=== PATIENT | male | born 1995 | race Caucasian/White ===

== ENCOUNTER 2021-11-16 18:45 | Emergency (ER) | payer OTHER, SELFPAY ==
--- NOTE | 2021-11-16 18:51 | ED.WOUNDLAC ---
HPI - Wound/Laceration General Chief Complaint: Wound/Laceration Stated Complaint: cut on L foot Time Seen by Provider: 11/16/21 18:57 Source: patient and RN notes reviewed Mode of arrival: ambulatory Limitations: no limitations History of Present Illness Onset (ago): minute(s) (30) Extremity Location: Left: foot Place: home Patient tetanus UTD: No Context: accidental and sharp object use Associated symptoms: pain Related Data Home Medications Medication Instructions Recorded Confirmed dextroamphetamine-amphetamine 10 mg PO DAILY 11/16/21 11/16/21 Allergies Allergy/AdvReac Type Severity Reaction Status Date / Time No Known Allergies Allergy Verified 11/16/21 19:20 Review of Systems Review of Systems: All systems reviewed & are unremarkable except as noted in HPI and below PMFSH Past Medical History Medical History (Updated 11/17/21 @ 00:00 by Sona Gonzalez) ADHD Seasonal allergies Surgical History Surgical History (Updated 11/16/21 @ 19:03 by Jose Guadarrama MD) Fracture of forearm, distal, right, closed plates and screws Social History Social History (Updated 11/16/21 @ 19:03 by Jose Guadarrama MD) Smoking status: Never smoker Exam Const: General: healthy appearing, no acute distress and alert Nutritional Appearance: well nourished and thin Orientation/consciousness: patient oriented x3 HENMT: Head: normal to inspection Ears: external ears normal Eyes: Conjunctivae: conjunctivae normal Pupils: Equal, round and reactive pupils present EOM: EOMs intact bilaterally Neck: Neck: normal visual inspection Resp: Effort & Inspection: normal respiratory effort Auscultation: clear to auscultation bilaterally Cardio: Rate: regular rate Rhythm: regular rhythm GI: GI Palp: Yes Soft to palpation and No Tenderness to palpation present (GI) Auscultation: normal bowel sounds Back/Spine/Pelvis: Cervical Spine: cervical ROM normal Thoracic/Lumbar Spine: thoraco-lumbar ROM normal Skin: General skin exam: normal color Rashes: no rashes Wounds: wounds noted laceration left dorsal foot size (1 cm) Neuro: General: patient oriented x3, moves all extremities, no focal motor deficits and CN's II-XI intact bilaterally Speech: normal speech Gait exam (Neuro): Normal gait present Extrem: General: normal to inspection and no clubbing, cyanosis or edema Psych: Appearance: grossly normal and well kempt Mental Status: mental status grossly normal Affect: normal affect Attitude: cooperative Thought content: Yes Normal thought content present Course Vital Signs Vital signs: Vital Signs Temperature 36.6 C 11/16/21 19:00 Pulse Rate 86 11/16/21 19:00 Respiratory Rate 14 11/16/21 19:00 Blood Pressure 135/86 11/16/21 19:00 Pulse Oximetry 99 11/16/21 19:00 Temperature 36.6 C 11/16/21 19:00 Pulse Rate 86 11/16/21 19:00 Respiratory Rate 14 11/16/21 19:00 Blood Pressure 135/86 11/16/21 19:00 Pulse Oximetry 99 11/16/21 19:00 Procedures Laceration Laceration 1: Date: 11/16/21 Site: lower extremity (dorsal foot) Side (If applicable): left Description: linear Depth: simple, single layer Local Anesthetic: lidocaine 1% Amount of anesthesia used (mL): 4 Pre-repair: wound explored and irrigated ====== Skin Level ====== Skin layer closed with: nylon Size (cm): 4-0 Number of sutures: 4 Technique: running ====== Subcutaneous Layer ====== ====== Muscle Layer ====== ====== Tendon Layer ====== Dressing: triple antibiotic and Band-Aid Discharge Plan Discharge Clinical Impression: Laceration Patient Disposition: Home, Self-Care Condition: Improved Instructions: Care For Your Stitches (ED) Additional Instructions: Tylenol and or Motrin as needed for pain. Do not get wet for 36 hours. Stitches out in 10-14 days. Prescriptions: No Action
[2021-11-16 19:00] VITALS: BP 135/86; PULSE 86; RESP 14; TEMP 36.6; O2SAT 99
[2021-11-16] MEDS: LIDOCAINE HCL 1% LOCAL INJ 10 ML VIAL INFILTRATE (19:17)
[2021-11-16] MEDS: TETANUS,DIPHTHERIA,AC PERTUSSIS ADULT 0.5 ML (ADACEL) IM (19:17)
[2021-11-16] MEDS: NEOMYCIN/POLYMYXIN/BACITRACIN OINTMENT PACKET 1 PACKET TOPICAL (19:19)
[2021-11-16] MEDS: Please add drug allergy info to patient profile. XX (19:19)
== END 2021-11-16 19:25 | disposition home or self-care (01) ==
PROVIDERS: Emergency Provider Emergency Medicine; PCP Family Medicine
DX: S91.312A Laceration without foreign body, left foot, initial encounter (principal); W26.9XXA Contact with unspecified sharp object(s), initial encounter
CPT/HCPCS: 12001; 90471; 90715; 99282

== ENCOUNTER 2022-01-30 19:37 | Emergency (ER) | payer OTHER, SELFPAY ==
--- NOTE | ~2022-01-30 | XR_ITS ---
EXAM: XR hand RT min 3V, XR wrist RT 2V DATE: 01/30/2022 20:23 HISTORY: punched wall pain,5TH METACARPAL PAIN . COMPARISON: None available. FINDINGS: Uncomplicated distal radial fixation plate and screws. Normal mineralization. Comminuted di stal right fifth metacarpal fracture with significant anterior angulation. No other fracture. No disl ocation. No lytic or blastic lesion. Joint spaces are maintained. No erosion or periosteal change. So ft tissues within normal limits. IMPRESSION: Comminuted distal right fifth metacarpal fracture with severe anterior angulation. Reviewed, dictated and finalized at location K. IMPRESSION: Comminuted distal right fifth metacarpal fracture with severe anter ior angulation.
[2022-01-30 20:11] VITALS: BP 130/66; PULSE 80; RESP 18; TEMP 36.6
--- NOTE | 2022-01-30 20:52 | ED.UPPEXIN ---
HPI - Extremity Injury (Upper) General Chief Complaint: Extremity Injury, Upper Stated Complaint: right hand injury Time Seen by Provider: 01/30/22 19:39 Source: patient and RN notes reviewed Mode of arrival: ambulatory Limitations: no limitations History of Present Illness complaint: injury to: right and hand (hand pain marie 5th MCP joint x this PM.) Onset (ago): hour(s) Other Extremity Injury: Right: fingers Other injuries: none Place: home Severity: mild Severity scale (1-10): 4 Relieving factors: none Exacerbating factors: movement of extremity Context: direct blow Associated symptoms: denies other symptoms Related Data Home Medications Medication Instructions Recorded Confirmed dextroamphetamine-amphetamine 10 10 mg PO DAILY 11/16/21 01/30/22 mg tablet Allergies Allergy/AdvReac Type Severity Reaction Status Date / Time No Known Allergies Allergy Verified 11/16/21 19:20 Review of Systems Review of Systems: All systems reviewed & are unremarkable except as noted in HPI and below Constitutional: Constitutional: Reports no additional constitutional complaints Eyes: Eyes: Reports no additional eye complaints ENT: Reports system reviewed and no additional complaints, except as documented Cardiovascular: Cardiovascular: Reports no additional cardiovascular complaints Respiratory: Respiratory: Reports no additional respiratory complaints Gastrointestinal: Gastrointestinal: Reports no additional gastrointestinal complaints Musculoskeletal: Musculoskeletal: Reports arthralgias Integumentary/Breasts: Skin/Breast: Reports system reviewed and no additional complaints, except as docu Neurologic: Reports system reviewed and no additional complaints, except as documented Psychiatric: Psychiatric: Reports no additional psychiatric complaints Endocrine: Endocrine: Reports no additional endocrine complaints Hematologic/Lymphatic: Hematologic/Lymphatic: Reports no additional hematologic/lymphatic complaints Allergic/Immunologic: Allergic/Immunologic: Reports no additional allergic/immunologic complaints PMFSH Past Medical History Medical History (Updated 01/30/22 @ 21:21 by Wayne Hurt MD) ADHD Boxers fracture Seasonal allergies Surgical History Surgical History (Updated 11/16/21 @ 19:03 by Jose Guadarrama MD) Fracture of forearm, distal, right, closed plates and screws Social History Social History (Updated 11/16/21 @ 19:03 by Jose Guadarrama MD) Smoking status: Never smoker Exam Const: General: healthy appearing and no acute distress Nutritional Appearance: well nourished Orientation/consciousness: patient oriented x3 Limitations: no limitations HENMT: Head: normal to inspection Ears: external ears normal, TM's normal bilaterally and EAC's normal General nose exam: Normal external nose present and Normal nares present Face and sinus: normal facial exam and sinuses nontender Mouth: Yes Normal oral and palatal mucosa present and Yes moist mucous membranes Teeth and gingiva: dentition normal Throat: posterior oropharynx normal Eyes: Conjunctivae: conjunctivae normal Pupils: Equal, round and reactive pupils present EOM: EOMs intact bilaterally Neck: Neck: normal visual inspection, no lymphadenopathy and no meningeal signs Chest: Chest palpation & inspection: normal inspection of the chest Resp: Effort & Inspection: normal respiratory effort Auscultation: clear to auscultation bilaterally Cardio: Rate: regular rate Rhythm: regular rhythm GI: GI Palp: Yes Soft to palpation and No Tenderness to palpation present (GI) Auscultation: normal bowel sounds : General: Yes bladder normal to palpation and Yes no CVA tenderness Back/Spine/Pelvis: Back: no CVA tenderness Skin: General skin exam: normal color Rashes: no rashes Wounds: no wounds Neuro: General: patient oriented x3, moves all extremities, no meningeal signs, no focal motor deficits and CN's II-XI inta
[2022-01-30] MEDS: IBUPROFEN 400 MG TABLET 800 MG PO (21:25)
[2022-01-30 21:59] VITALS: BP 130/80; PULSE 60; RESP 16; TEMP 36.1; O2SAT 96
== END 2022-01-30 22:00 | disposition home or self-care (01) ==
PROVIDERS: Emergency Provider Emergency Medicine; PCP Family Medicine
DX: S62.91XA Unspecified fracture of right hand, initial encounter for closed fracture (principal); W22.01XA Walked into wall, initial encounter
CPT/HCPCS: 29125; 29130; 73100; 73130; 99284; A4565; A9270

== ENCOUNTER 2022-10-29 09:49 | Outpatient (CLI) | payer OTHER, SELFPAY ==
--- NOTE | ~2022-10-29 | MR_ITS ---
EXAMINATION: MR sacroiliac jts wo con DATE: 10/29/2022 11:55 INDICATION: Pelvic pain. Low back pain. TECHNIQUE: Magnetic resonance imaging (MRI) of the sacroiliac joints was performed without intravenou s contrast. COMPARISON: None. FINDINGS: Bone alignment is normal. No fracture. There is mild osteoarthritis of the sacroiliac joint s characterized by tiny osteophytes and mild subchondral edema-like marrow signal intensity. No speci fic evidence of inflammatory arthropathy. There is mild lumbar spondylosis. IMPRESSION: 1. Mild osteoarthritis of the sacroiliac joints. Reviewed, dictated and finalized at location A.
== END 2022-10-29 09:50 | disposition home or self-care (01) ==
LOC: CHSIMG 09:50
PROVIDERS: PCP Family Medicine
DX: M54.50 Low back pain, unspecified (principal); M47.898 Other spondylosis, sacral and sacrococcygeal region
CPT/HCPCS: 72197

== ENCOUNTER 2023-10-23 18:44 | Emergency (ER) | payer OTHER, SELFPAY ==
--- NOTE | ~2023-10-23 | XR_ITS ---
EXAM: XR shoulder LT min 2V DATE: 10/23/2023 20:33 HISTORY: pain after fall . COMPARISON: None available. FINDINGS: Normal mineralization. No fracture or dislocation. No lytic or blastic lesion. Joint space s are maintained. No erosion or periosteal change. Soft tissues within normal limits. IMPRESSION: No acute osseous finding in the bilateral shoulders. Reviewed, dictated and finalized at location K.
--- NOTE | ~2023-10-23 | XR_ITS ---
EXAM: XR shoulder RT min 2V DATE: 10/23/2023 20:33 HISTORY: pain after fall . COMPARISON: None available. FINDINGS: Normal mineralization. No fracture or dislocation. No lytic or blastic lesion. Joint space s are maintained. No erosion or periosteal change. Soft tissues within normal limits. IMPRESSION: No acute osseous finding in the bilateral shoulders. Reviewed, dictated and finalized at location K.
--- NOTE | ~2023-10-23 | XR_ITS ---
EXAM: XR thoracic spine 3V DATE: 10/23/2023 20:33 HISTORY: back pain after fall . COMPARISON: None available. FINDINGS: Vertebral body alignment intact. Mild anterior wedge morphology at T9 and T10 where there is interbody fusion, these findings are likely chronic. Mild multilevel degenerative disc disease. No traumatic malalignment or fracture. Visualized lung parenchyma is clear. IMPRESSION: No acute fracture or traumatic malalignment detected in the thoracic spine. Reviewed, dictated and finalized at location K. IMPRESSION: No acute fracture or traumatic malalignment detected in the thoraci c spine.
--- NOTE | ~2023-10-23 | XR_ITS ---
EXAM: XR lumbar spine 2-3V DATE: 10/23/2023 20:33 HISTORY: pain after fall . COMPARISON: None available. FINDINGS: 5 nonrib-bearing lumbar-type vertebral bodies. Pedicles intact. Normal vertebral body alig nment. Vertebral body heights preserved. Mild degenerative disc disease at L5-S1. Normal facets and p osterior elements. No fracture or dislocation. IMPRESSION: . Reviewed, dictated and finalized at location K. IMPRESSION: .
[2023-10-23 18:46] VITALS: BP 123/86; PULSE 96; RESP 18; TEMP 36.5; O2SAT 97
--- NOTE | 2023-10-23 18:54 | ED.GENADULT ---
HPI - General Adult General Chief complaint: Back Pain/Injury Stated complaint: Fall/Back pain Time Seen by Provider: 10/23/23 18:51 History of Present Illness HPI narrative: Juan is a previously healthy 28M that tripped and fell down 4 stairs just prior to arrival. He fell onto his back and right shoulder. He did not hit his head or neck and does not have any neck pain. He has pain in both shoulders upper back and lower back midline as well as in the paraspinal muscles of the upper back bilaterally. No other injuries or concerns stated. Related Data Home Medications Medication Instructions Recorded Confirmed lisdexamfetamine 30 mg capsule 30 mg PO DAILY 10/23/23 10/23/23 (Vyvanse) Allergies Allergy/AdvReac Type Severity Reaction Status Date / Time No Known Allergies Allergy Verified 10/23/23 19:08 Review of Systems Review of Systems: All systems reviewed & are unremarkable except as noted in HPI and below PMFSH Past Medical History Medical History ADHD Boxers fracture Seasonal allergies Surgical History Surgical History Fracture of forearm, distal, right, closed plates and screws Social History Social History Smoking status: Never smoker Exam Const: General: cooperative, healthy appearing, comfortable, no acute distress, well developed, alert, awake and Physically active Orientation/consciousness: oriented to person, oriented to place and oriented to time HENMT: Head: normal to inspection, normocephalic and atraumatic Ears: hearing grossly normal bilaterally and external ears normal Face/Nose/Sinus: Normal external nose present Eyes: General: appearance normal, both eyes and all related structures Periorbital: periorbital findings normal Sclera: sclerae normal Pupils: Equal, round and reactive pupils present Neck: Neck: normal visual inspection Chest: Chest palpation & inspection: normal inspection of the chest Resp: Effort & Inspection: normal respiratory effort, able to speak in complete sentences and no respiratory distress Cardio: Jugular venous distension: no JVD Back/Spine/Pelvis: Other: TTP at the level of the spine of the scapula in the midline. Also there is midline tenderness in the mid lumbar spine. TTP over the scapula on the right. Globally decreased range of motion in the lumbar spine and thoracic spine. Skin: General skin exam: normal color and no rashes or lesions noted Neuro: General: oriented to person, oriented to place and oriented to time Cranial nerves: Yes Equal, round and reactive pupils present Extrem: General: normal to inspection Course Course Emergency Course: Ordered radiographs. Toradol and flexeril for the pain. Vital Signs Vital signs: Vital Signs Temperature 97.7 F 10/23/23 18:46 Pulse Rate 96 10/23/23 18:46 Respiratory Rate 18 10/23/23 18:46 Blood Pressure 123/86 10/23/23 18:46 Pulse Oximetry 97 10/23/23 18:46 Oxygen Delivery Room Air 10/23/23 18:46 Temperature 97.7 F 10/23/23 18:46 Pulse Rate 96 10/23/23 18:46 Respiratory Rate 18 10/23/23 18:46 Blood Pressure 125/78 10/23/23 21:29 Pulse Oximetry 97 10/23/23 18:46 Oxygen Delivery Room Air 10/23/23 18:46 Medical Decision Making Vital Signs Vital Signs: Vital Signs Temperature 97.7 F 10/23/23 18:46 Pulse Rate 96 10/23/23 18:46 Respiratory Rate 18 10/23/23 18:46 Blood Pressure 123/86 10/23/23 18:46 Pulse Oximetry 97 10/23/23 18:46 Oxygen Delivery Room Air 10/23/23 18:46 Temperature 97.7 F 10/23/23 18:46 Pulse Rate 96 10/23/23 18:46 Respiratory Rate 18 10/23/23 18:46 Blood Pressure 125/78 10/23/23 21:29 Pulse Oximetry 97 10/23/23 18:46 Oxygen Delivery Room Air 10/23/23 18:46 Discharge Plan Discharge Clinical I
[2023-10-23] MEDS: CYCLOBENZAPRINE HCL 10 MG TABLET PO (19:13)
[2023-10-23] MEDS: KETOROLAC 30 MG/ML VIAL (*BKC) IM (19:13)
[2023-10-23 21:29] VITALS: BP 125/78
== END 2023-10-23 21:29 | disposition home or self-care (01) ==
PROVIDERS: Emergency Provider Family Medicine; PCP Family Medicine
DX: S39.012A Strain of muscle, fascia and tendon of lower back, initial encounter (principal); W10.9XXA Fall (on) (from) unspecified stairs and steps, initial encounter; F90.9 Attention-deficit hyperactivity disorder, unspecified type
CPT/HCPCS: 72072; 72100; 73030; 96372; 99284; A9270; J1885